=== PATIENT | male | born 1955 | race Caucasian/White ===

== ENCOUNTER 2018-10-17 07:40 | Emergency (ER) | payer OTHER ==
[~2018-10-17] VITALS: Ht 167.6 cm; Wt 81.6 kg
[2018-10-17 07:41] VITALS: BP 201/115
--- NOTE | 2018-10-17 07:50 | NUR ---
PT. CAME INTO THE ED DUE TO HEMATURIA SINCE THIS MORNING, PT. STATES " I WENT TO [facility] YESTERDAY AND THEY CHANGED OUT MY CATHETER AND THIS MORNING SAW BLOOD IN THE BAG AND IT STARTED HURTING A LOT". 08/12 SHARP PAIN IN CATHETER. HEMATURIA NOTED TO CATHETER BAG 50ML. DENIES ANY FEVERS OR CHILLS. ER MD MADE AWARE. RR EVEN AND UNLABORED. SAFETY PRECAUTIONS IMPLEMENTED. WILL CONTINUE TO MONITOR.
[2018-10-17] MEDS ORDERED: KETOROLAC 60 MG/2 ML VIAL IM ONE (08:20)
--- NOTE | 2018-10-17 08:40 | NUR ---
IRRIGATION PERFORMED BY MERVIN HICKEY 200CC AND 200CC RETURN YELLOW DARK URINE . ER MD RUSH MADE AWARE.
[2018-10-17 09:02] VITALS: BP 151/92
--- NOTE | 2018-10-17 09:02 | NUR ---
Patient discharged with v/s stable. Written and verbal after care instructions given and explained. Patient alert, oriented and verbalized understanding of instructions. Ambulatory with to car. All questions addressed prior to discharge. ID band removed. Patient advised to follow up with PMD. Rx of MOTRIN 800MG, CIPRO 500MG, AND NORCO 5/325 given. Patient educated on indication of medication including possible reaction and side effects. Opportunity to ask questions provided and answered.
== END 2018-10-17 09:02 | disposition home or self-care (01) ==
LOC: MED 07:40
DX: N39.0 Urinary tract infection, site not specified (principal); I10 Essential (primary) hypertension; Z88.0 Allergy status to penicillin; Z88.5 Allergy status to narcotic agent
CPT/HCPCS: 81002; 96372; 99283; J1885

== ENCOUNTER 2018-10-26 09:30 | Emergency (ER) | payer OTHER ==
[~2018-10-26] VITALS: Ht 167.6 cm; Wt 87.5 kg
[2018-10-26 09:44] VITALS: BP 101/50
--- NOTE | 2018-10-26 09:51 | NUR ---
PT AMBULATES TO BED 8
--- NOTE | 2018-10-26 10:09 | NUR ---
63/ M PRESENTS TO ED WITH C/O OF BLE EDEMA AND PAIN, LEFT FOOT +2 PITTING EDEMA, RIGHT ANKLE+1 PITTING EDEMA. PATIENT STATES THAT IN AUGUST HE HAD DIFFICULTY URINATING, SINCE THEN HE HAS HAD CATHETERS PLACED. PAIN IS 4/10, FEELS CONSTANT PRESSURE, WORSENS WITH WALKING. DENIES TRUAMA AND N/V/D; SKIN IS PINK/WARM/DRY; AAOX4 WITH EVEN AND STEADY GAIT; LUNGS CLEAR BL; HR EVEN AND REGULAR; PT DENIES ANY FEVER, CP, SOB, OR COUGH AT THIS TIME; PATIENT POSITIONED FOR COMFORT; HOB ELEVATED; BEDRAILS UP X2; BED DOWN. ER MD MADE AWARE OF PT STATUS.
--- NOTE | 2018-10-26 10:29 | NUR ---
Patient being evaluated by physician at bedside.
--- NOTE | 2018-10-26 10:45 | NUR ---
Martha ayala in [facility] - 10/26/18 at [address] DOUGLAS AT [facility].
[2018-10-26 11:07] VITALS: BP 101/50
--- NOTE | 2018-10-26 11:08 | NUR ---
Patient discharged with v/s stable. Written and verbal after care instructions given and explained. Patient verbalized understanding. Ambulatory with steady gait. All questions addressed prior to discharge. Advised to follow up with PMD.
== END 2018-10-26 11:00 | disposition home or self-care (01) ==
LOC: MED 09:30
DX: R60.0 Localized edema (principal); I10 Essential (primary) hypertension; Z88.0 Allergy status to penicillin; Z88.5 Allergy status to narcotic agent
CPT/HCPCS: 99281

== ENCOUNTER 2018-11-24 12:56 | Emergency (ER) | payer MEDICARE ==
[~2018-11-24] VITALS: Ht 167.6 cm; Wt 81.6 kg
[2018-11-24 13:26] VITALS: BP 147/93
--- NOTE | 2018-11-24 13:31 | NUR ---
PATIENT TO LOBBY WITH STEADY GAIT
--- NOTE | 2018-11-24 13:49 | NUR ---
Martha ayala in ED - 11/24/18 at 1350 by [facility] PT BIB [facility] TO ER BED 7
--- NOTE | 2018-11-24 13:50 | NUR ---
PATIENT AMBULATED TO ER BED 9.
--- NOTE | 2018-11-24 14:00 | NUR ---
PATIENT IS A 63 Y/O MALE WHO PRESENTS TO THE ED C/O HEMATURIA. PT IS ON A CHRONIC ACOSTA CATHETER AND NOTICED BLEEDING X1 DAY. PT REPORTS 7/10 SHARP BLADDER PAIN. PT DENIES CP, SOB, N/V/D. PT AWAKE, ALERT, AMBULATORY, RR EVEN/UNLABORED. PT REPOSITIONED FOR COMFORT, BED IN LOWEST POSITION. ER MD DR. DAVIS NOTIFIED. WILL CONTINUE TO MONITOR.
[2018-11-24 15:53] VITALS: BP 148/94
== END 2018-11-24 15:53 | disposition home or self-care (01) ==
LOC: MED 12:56
DX: R31.9 Hematuria, unspecified (principal); N40.0 Benign prostatic hyperplasia without lower urinary tract symptoms; I10 Essential (primary) hypertension; Z88.0 Allergy status to penicillin; Z88.5 Allergy status to narcotic agent
CPT/HCPCS: 81002; 99283

== ENCOUNTER 2019-01-09 23:25 | Emergency (ER) | payer MEDICARE ==
[~2019-01-09] VITALS: Ht 167.6 cm; Wt 81.6 kg
[2019-01-09 23:39] VITALS: BP 180/94
--- NOTE | 2019-01-09 23:45 | NUR ---
PT AMBULATED TO BED 1
--- NOTE | 2019-01-10 00:30 | NUR ---
PT'S PREVIOUS INDWELLING ACOSTA WITH 30ML YELLOW CLOUDY URINE, PT C/O RETENTION AND PAIN. ATTEMPTED TO IRRIGATE, NO URINE FLOW NOTED. ACOSTA REMOVED, MINIMAL AMOUNT OF BLOOD NOTED AT [facility], PT WITH HX OF BLADDER IRRIGATION DUE TO EXCESSIVE HEMATURIA. INSERTED [address] WAY ACOSTA ORDERED, 600ML TEA COLORED URINE NOTED, PT REPORTS SLIGHT RELIEF IN PAIN.
[2019-01-10] MEDS ORDERED: KETOROLAC 60 MG/2 ML VIAL IM ONE (00:35)
[2019-01-10 04:40] VITALS: BP 129/72
--- NOTE | 2019-01-10 04:40 | NUR ---
Patient discharged with v/s stable. Written and verbal after care instructions given and explained. Patient alert, oriented and verbalized understanding of instructions. Ambulatory with steady gait. All questions addressed prior to discharge. ID band removed. Patient advised to follow up with PMD. Rx of CIPRO AND MOTRIN given. LEG BAG PLACED FOR ACOSTA CATHETER AND SECURED TO RIGHT LEG. Patient educated on indication of medication including possible reaction and side effects. Opportunity to ask questions provided and answered.
== END 2019-01-10 04:40 | disposition home or self-care (01) ==
LOC: MED 23:25
DX: N39.0 Urinary tract infection, site not specified (principal); R33.9 Retention of urine, unspecified; Z88.0 Allergy status to penicillin; Z88.5 Allergy status to narcotic agent; Z98.890 Other specified postprocedural states
CPT/HCPCS: 81002; 96372; 99284; J1885; 51702; 99283